=== PATIENT | female | born 1995 | race Hispanic/Latino ===

== ENCOUNTER 2024-03-12 05:52 | Day surgery (SDC) | payer OTHER ==
[2024-03-11 09:22] LABS: Absolute Eosinophils 0.1 K/uL (0-0.5); Absolute Lymphocytes (CBC) 1.5 K/uL (0.7-4.9); Absolute Monocytes 0.4 K/uL (0.1-1.3); Absolute Neutrophil 3.2 K/uL (1.8-8.0); Basophils % 0.2 % (0-1.3); Eosinophils % 1.8 % (0-4.4); Hematocrit 42.2 % (36.0-45.0); Hemoglobin 14.1 g/dL (12.0-15.0); Lymphocytes % 29.1 % (15.3-44.8); MCH 30.3 pg (27.0-35.0); MCHC 33.5 g/dL (32.0-36.0); MCV 90.4 fL (80-100); MPV 8.4 fL (7.6-11.3); Monocytes % 7.8 % (3.3-12.3); Neutrophils % 61.1 % (41.7-73.7); Platelets 275 thou/uL (152-406); RBC Red Blood Cell Count 4.66 M/uL (3.86-4.86); Red Cell Distribution Width 12.5 % (12.1-15.2)
[2024-03-11 09:29] LABS: PT Prothrombin Time 13.2 SECONDS (9.4-12.5); PTT, Activated Partial Thromb 33.4 SECONDS (24.3-36.9); Protime INR 1.18
--- NOTE | 2024-03-11 10:49 | RAD REPORT ---
EXAMINATION: TWO VIEW CHEST XR CLINICAL INDICATION: pre op for day surgery TECHNIQUE: 2 views of the chest was performed. COMPARISON: No prior exam. FINDINGS: The lungs are well inflated and clear. The heart is normal in size. No displaced fractures evident. IMPRESSION: No acute or significant abnormalities.
--- NOTE | 2024-03-11 12:12 | EKG ---
Test Date: 2024-03-11 Test Time: 09:07:18 Pewter Caster: AMIE MEASUREMENT RESULTS: Intervals: Rate: 66 MT: 146 QRSD: 98 QT: 404 QTc: 423 Gilbert: P: 54 MT: 146 QRS: 70 T: 72 INTERPRETIVE STATEMENTS: Normal sinus rhythm Normal ECG No previous ECG available for comparison Electronically Signed On 03-11-24 12:11:45 CDT by Loy Ewing
[2024-03-12] MEDS: Ringers Lactate 1,000 ML IV ONE (05:52)
[2024-03-12] MEDS ORDERED: dexAMETHasone 10 MG/ML VIAL ONE ×2 (06:57→07:54)
[2024-03-12] MEDS ORDERED: BUPIVACAINE 0.25% PF 30 ML VIAL ONE (06:58)
[2024-03-12] MEDS ORDERED: FENTANYL CITR 100 MCG/2 ML ONE (06:58)
[2024-03-12] MEDS ORDERED: MIDAZOLAM HCL 2 MG/2 ML INJ ONE (06:58)
[2024-03-12] MEDS ORDERED: EPINEPHRINE 1 MG/ML VIAL ONE (06:58)
[2024-03-12] MEDS ORDERED: LIDOCAINE 1% MPF 5 ML VIAL ONE (07:00)
[2024-03-12] MEDS ORDERED: KETOROLAC 30 MG/ML INJ ONE (07:54)
[2024-03-12] MEDS ORDERED: LIDOCAINE 2% MPF 5 ML VIAL ONE (07:54)
[2024-03-12] MEDS ORDERED: propofoL 200 MG/20 ML VIAL IV ONE (07:54)
[2024-03-12] MEDS ORDERED: ONDANSETRON 4 MG/2 ML VIAL ONE (07:54)
[2024-03-12] MEDS: CEFAZOLIN SODIUM 2 GM/VIAL ONE (08:00)
[2024-03-12] MEDS ORDERED: NS 0.9% VIAL 10 ML ONE ×2 (08:24)
[2024-03-12] MEDS ORDERED: ROCURONIUM 50 MG/5 ML VIAL IV ONE (08:34)
--- NOTE | 2024-03-12 10:45 | P.BOP ---
Preoperative diagnosis: Left knee ACL tear Postoperative diagnosis: Same Primary procedure: Left knee ACL reconstruction with bone patellar tendon bone autograft Area Development Consultant: NONE,NONE Estimated blood loss: 5 cc Specimen: None Findings: See dictation Anesthesia: General Complications: None Implants: Arthrex 7 x 20 mm BioScrew, 8 x 30 mm BioScrew, 6.5 x 25 mm post Fluids & blood products: Per anesthesia record; tourniquet time 118 minutes at 300 mmHg Transferred to: Recovery Room Condition: Good
--- NOTE | 2024-03-12 10:50 | P.OP ---
Preoperative diagnosis: Left knee ACL tear Postoperative diagnosis: Same Primary procedure: Left knee ACL reconstruction with bone patellar tendon bone autograft Anesthesia: General Estimated blood loss: 5 cc Specimen: None Findings: See dictation Operative Technique: Indications For Procedure: Khalida is a 28-year-old female, who presented to my clinic after sustaining an injury to her left knee. She reports subsequent instability, pain, and swelling to his left knee. Physical exam findings, as well as MRI findings were consistent with left knee ACL tear. After a discussion with the patient the risks and benefits associated operative and nonoperative treatment at length, as well as graft options, they expressed understanding and elected to proceed with left ACL reconstruction with bone-patellar tendon-bone autograft. Description Of Procedure: After informed consent was obtained, the patient was identified in the preoperative holding area. The left lower extremity was marked. The patient was then brought back to the operating room, transferred to the operating table in supine fashion, and placed under general LMA anesthesia. The left lower extremity was examined. The patient did have full range of motion and a positive Marco A examination with instability and no endpoint. The left lower extremity was then prepped and draped in the usual sterile fashion, and a timeout was initiated. The correct patient and procedure were identified. The patient did receive her prophylactic preoperative antibiotics. An Esmarch was then used exsanguinate the left lower extremity, and the tourniquet was then inflated to 300 mmHg. Attention was first taken to obtaining the bone-patellar tendon-bone autograft. A midline incision was made over the patellar tendon extending just from the inferior pole of the patella, as well as the proximal aspect of the tibial tuberosity. Dissection was then taken down to the peritenon using a 15 blade. Peritenon was split, divided, and preserved. The patellar tendon was identified. A central 1 cm portion of the patellar tendon was then incised using a 10 blade from the inferior pole of the patella to the tibial tuberosity. A handsaw was then used to remove the 10 x 20 mm bone block over the inferior pole of the patella, as well as the 10 x 20 mm bone block over the proximal tibia. The graft was taken without complication and taken to the back table by the metallurgical laboratory assistant for preparation for placement in the tunnel. The patellar tendon was then approximated using 0 Vicryl. The paratenon was then approximated using 0 Vicryl. Bone graft taken from the plugs were then placed in the bony voids of the patella and within the inferior patella, as well as the tibial tuberosity. Subcutaneous tissues were approximated using a 2-0 Vicryl. Next, a standard anterolateral portal was made, and a diagnostic arthroscopy was performed. The arthroscope was brought into the patellofemoral compartment. The patient was noted to have pristine cartilage over the undersurface of the patella, as well as the trochlear groove. The arthroscope was then brought into both medial and lateral gutters, and there were no obvious loose bodies noted. T he arthroscope was then brought into the medial compartment, and under direct visualization with the spinal needle and an 11 blade, an anteromedial portal was then created. The probe was inserted, and there was pristine cartilage in the medial femoral condyle. The medial tibial plateau and the medial meniscus were stable to probe. The arthroscope was then brought into the intracondylar notch, and the patient was noted to have an obvious ACL tear. The remaining ACL was then removed using an arthroscopic shaver, and a radiofrequency ablater was then used to elevate the soft tissue off the lateral femoral condyle. This was also used to holden the footprint on the tibial plateau. Next, the arthroscope was brought into the lateral compartment. The patient was noted to have pristine cartilage over the lateral femoral condyle and the lateral tibial plateau with no obvious chondral pathology. The lateral meniscus was stable to probe without tear. The arthroscope was then brought back into the intracondylar notch, and an 11 mm retro cutter was then placed over the tibial footprint. A 2 cm incision was made over the anteromedial proximal tibia for the placement of the guide onto the proximal tibia, and a guidepin was then introduced, and then tibial tunnel was retroreamed. An arthroscopic shaver was then used to clean out any bony debris within the tunnel, as well as within the joint. The knee was then brought into hyperflexion, and a 7 mm femoral offset was then used, and it was placed over a prior marked area at the insertion of the ACL on the lateral femoral condyle. A guidepin was then placed, and a 4.5 mm reamer was used over- ream the guidepin to ensure proper tunneling depth, and a 10 mm low profile reamer was then used to create the femoral tunnel. The arthroscopic shaver was then used to clean any bony debris. The graft was then placed through the tunnel, and the grasper, which had been prepared on the back table, was then passed and placed into proper position within the femoral tunnel using hemostats. The tunnel was then notched and tapped, and an 7 x 20 Arthrex biocomposite screw was placed. The knee was then placed in extension with tension being placed on the graft. There was no graft tunnel mismatch and a 8 x 30 mm biointerference screw was then placed in the tibial tunnel without complication. A portion of the bone plug was debrided to minimize overlying skin irritation. The knee was then examined and found to have a stable Marco A, and a 6.5 x 25 mm post was then placed for back-up fixation, and the wounds were then irrigated thoroughly with normal saline. The subcutaneous tissue was then approximated using 2-0 Vicryl, and the portal site incisions were approximated using a 5-0 Monocryl. Sterile dressings were placed and the patient was awaken ed and transferred to PACU in stable condition. Postoperative plan: Patient may be weightbearing as tolerated. She will remain in the hinged knee brace locked in extension for 1 week. She will begin working with physical therapy per accelerated ACL reconstruction protocol next week. Complications: None Implants: Arthrex 7 x 20 mm BioScrew, 8 x 30 mm BioScrew, 6.5 x 25 mm post Fluids & blood products: Per anesthesia record; tourniquet time 118 minutes at; 300 mmHg Transferred to: Recovery Room Condition: Good
[2024-03-12] MEDS: HYDROMORPHONE HCL 1 MG/ML INJ ONE ×2 (10:56→11:30)
[2024-03-12] MEDS ORDERED: HYDROMORPHONE HCL 1 MG/ML INJ ONE (11:08)
[2024-03-12] MEDS ORDERED: dexAMETHasone 4 MG/ML VIAL ONE (11:31)
[2024-03-12] MEDS ORDERED: BUPIVACAINE 0.5% PF 10 ML VIAL ONE (11:32)
[2024-03-12] MEDS ORDERED: Ringers Lactate 1,000 ML IV ONE (11:33)
--- NOTE | 2024-03-12 11:40 | RAD REPORT ---
EXAM: XR Knee Left 2 View HISTORY: [facility] MAIN POST-OP #8 AP LAT LEFT KNEE COMPARISON: None TECHNIQUE: 2 views of the left knee were obtained. FINDINGS: Postoperative views demonstrating sequelae of ACL repair. External stabilization hardware i n place. No significant degenerative changes are seen. No soft tissue swelling or other soft tissue abnormality is present. IMPRESSION: Expected postoperative findings following ACL repair.
[2024-03-12] MEDS: HYDROCODONE/APAP 5/325 MG TAB ONE (12:40)
[2024-03-12 13:09] VITALS: TEMP 98.6; O2SAT 98
[2024-03-12 13:11] VITALS: BP 113/67
== END 2024-03-12 13:00 | disposition home or self-care (01) ==
LOC: OR 05:52
PROVIDERS: ATTEND Orthopaedic Surgery Sports Medicine
PROC: 0MQP4ZZ Repair Left Knee Bursa and Ligament, Percutaneous Endoscopic Approach (ICD-10-PCS; 2024-03-12)
PROC: 0SUD47Z Supplement Left Knee Joint with Autologous Tissue Substitute, Percutaneous Endoscopic Approach (ICD-10-PCS; principal; 2024-03-12 08:00)
DX: S83.512A Sprain of anterior cruciate ligament of left knee, initial encounter (principal); M25.562 Pain in left knee
CPT/HCPCS: 93005; 85025; 80048; 36415; 81025; 85610; 85730; 71046; 73560; 29866; 29888; A4216 ×2; J2704; J1100 ×3; J2003 ×2; J2250; J3010; J0171; J1171 ×3; J2405; J7120